=== PATIENT | male | born 1965 | race Caucasian/White ===

== ENCOUNTER 2020-09-25 06:09 | Outpatient (REF) | payer BC, SELFPAY ==
[2020-09-25 07:01] LABS: MANUAL DIFF FLAG NO
[2020-09-25 07:05] LABS: Basophils Percent Auto 0.3 % (0-2); Eosinophils Absolute Auto 0.1 X10*3/uL (0.0-0.4); Eosinophils Percent Auto 1.6 % (0-4); Hematocrit 43.2 % (42-52); Hemoglobin 14.5 g/dl (14.0-18.0); Imm Gran Abs Auto 0.02 X10*3/uL (0.00-0.03); Imm Gran Pct Auto 0.3 % (0.0-0.4); Lymphocytes Absolute Auto 2.4 X10*3/uL (1.2-4.9); Lymphocytes Percent Auto 32.3 % (20-40); Mean Corpuscular HGB Conc 33.6 g/dl (31.0-36.0); Mean Corpuscular Hemoglobin 30.7 pg (27.0-33.0); Mean Corpuscular Volume 91.5 fL (80-98); Mean Platelet Volume 9.4 fL (9.4-12.4); Monocytes Absolute Auto 0.8 X10*3/uL (0.1-1.2); Monocytes Percent Auto 10.8 % (2-11); Neutrophils Absolute Auto 4.1 X10*3/uL (2.0-8.3); Neutrophils Percent Auto 54.7 % (45-73); Platelet Count 230 X10*3/uL (160-400); Red Blood Count 4.72 X10*6/uL (4.60-5.80); Red Cell Distribution Width 12.2 % (11.0-16.0); White Blood Count 7.5 X10*3/uL (4.8-10.8)
[2020-09-25 07:16] LABS: Estimated Average Glucose 120 mg/dL; Hemoglobin A1c % 5.8 %
[2020-09-25 07:36] LABS: Alanine Aminotransferase 56 U/L (0-40); Albumin Level 3.7 g/dL (3.5-5.0); Alkaline Phosphatase 92 U/L (39-117); Anion Gap 12 (12-20); Aspartate Amino Transferase 31 U/L (5-37); Bilirubin Total 0.3 mg/dL (0.0-1.0); Blood Urea Nitrogen 19 mg/dL (9-16); Calcium 9.3 mg/dL (8.4-10.2); Carbon Dioxide 26 mmol/L (22-29); Chloride 105 mmol/L (96-108); Cholesterol 108 mg/dL; Estimated Glomerular Filt Rate > 60; Glucose Random 109 mg/dL (60-115); HDL Cholesterol 36 mg/dL; LDL Cholesterol Calculated 51 mg/dl; Potassium 4.4 mmol/L (3.3-5.1); Sodium 139 mmol/L (135-145); Total Protein 6.4 g/dL (6.5-8.0); Triglycerides 106 mg/dL
== END 2020-09-25 06:10 | disposition home or self-care (01) ==
LOC: HO.LAB 06:09
PROVIDERS: Visit Provider Internal Medicine
DX: Z00.00 Encounter for general adult medical examination without abnormal findings (principal); F33.42 Major depressive disorder, recurrent, in full remission; I10 Essential (primary) hypertension; R73.01 Impaired fasting glucose
CPT/HCPCS: 36415; 80053; 80061; 83036; 85025

== ENCOUNTER → 2021-01-27 14:00 | Outpatient (BNVA) | payer BC, SELFPAY | PROVIDERS: PCP Internal Medicine; Visit Provider Orthopaedic Surgery ==

== ENCOUNTER 2021-03-28 07:00 | Outpatient (REF) | payer BC, SELFPAY ==
[2021-03-28 07:11] LABS: MANUAL DIFF FLAG NO
[2021-03-28 07:35] LABS: Basophils Percent Auto 0.3 % (0-2); Eosinophils Absolute Auto 0.2 X10*3/uL (0.0-0.4); Eosinophils Percent Auto 1.8 % (0-4); Hematocrit 44.7 % (42.0-52.0); Hemoglobin 15.2 g/dl (14.0-18.0); Imm Gran Abs Auto 0.02 X10*3/uL (0.00-0.03); Imm Gran Pct Auto 0.2 % (0.0-0.4); Lymphocytes Percent Auto 30.3 % (20-40); Mean Corpuscular Hemoglobin 31.5 pg (27.0-33.0); Mean Corpuscular Volume 92.7 fL (80.0-98.0); Mean Platelet Volume 9.4 fL (9.4-12.4); Monocytes Percent Auto 10.1 % (2-11); Neutrophils Absolute Auto 5.6 x10*3/uL (2.0-8.3); Neutrophils Percent Auto 57.3 % (45-73); Platelet Count 229 X10*3/uL (160-400); Red Blood Count 4.82 X10*6/uL (4.60-5.80); Red Cell Distribution Width 12.4 % (11.0-16.0); White Blood Count 9.8 X10*3/uL (4.8-10.8)
[2021-03-28 07:57] LABS: Alanine Aminotransferase 59 U/L (0-40); Albumin Level 3.9 g/dL (3.5-5.0); Alkaline Phosphatase 92 U/L (39-117); Anion Gap 14 (12-20); Aspartate Amino Transferase 35 U/L (5-37); Bilirubin Total 0.4 mg/dL (0.0-1.0); Blood Urea Nitrogen 16 mg/dL (9-16); Calcium 9.7 mg/dL (8.4-10.2); Carbon Dioxide 27 mmol/L (22-29); Chloride 102 mmol/L (96-108); Estimated Glomerular Filt Rate > 60; Glucose Random 117 mg/dL (60-115); Potassium 4.7 mmol/L (3.3-5.1); Sodium 138 mmol/L (135-145); Total Protein 7.2 g/dL (6.5-8.0)
== END 2021-03-28 07:01 | disposition home or self-care (01) ==
LOC: HO.LAB 07:00
PROVIDERS: PCP Internal Medicine; Visit Provider Internal Medicine
DX: B35.1 Tinea unguium (principal); I10 Essential (primary) hypertension; K21.9 Gastro-esophageal reflux disease without esophagitis; K62.5 Hemorrhage of anus and rectum
CPT/HCPCS: 36415; 80053; 85025

== ENCOUNTER 2021-09-29 06:16 | Outpatient (REF) | payer BC, SELFPAY ==
[2021-09-29 06:21] LABS: MANUAL DIFF FLAG NO
[2021-09-29 07:26] LABS: Basophils Absolute Auto 0.1 X10*3/uL (0.0-0.2); Basophils Percent Auto 0.7 % (0-2); Eosinophils Absolute Auto 0.2 X10*3/uL (0.0-0.4); Hematocrit 47.8 % (42.0-52.0); Hemoglobin 15.8 g/dl (14.0-18.0); Imm Gran Abs Auto 0.03 X10*3/uL (0.00-0.03); Imm Gran Pct Auto 0.3 % (0.0-0.4); Lymphocytes Percent Auto 33.3 % (20-40); Mean Corpuscular HGB Conc 33.1 g/dl (31.0-36.0); Mean Corpuscular Hemoglobin 30.9 pg (27.0-33.0); Mean Corpuscular Volume 93.5 fL (80.0-98.0); Mean Platelet Volume 9.1 fL (9.4-12.4); Monocytes Percent Auto 10.5 % (2-11); Neutrophils Absolute Auto 4.8 x10*3/uL (2.0-8.3); Neutrophils Percent Auto 53.2 % (45-73); Platelet Count 224 X10*3/uL (160-400); Red Blood Count 5.11 X10*6/uL (4.60-5.80); Red Cell Distribution Width 12.6 % (11.0-16.0); White Blood Count 9.1 X10*3/uL (4.8-10.8)
[2021-09-29 07:52] LABS: Alanine Aminotransferase 49 U/L (0-40); Albumin Level 3.9 g/dL (3.5-5.0); Alkaline Phosphatase 88 U/L (39-117); Anion Gap 13 (12-20); Aspartate Amino Transferase 28 U/L (5-37); Bilirubin Total 0.3 mg/dL (0.0-1.0); Blood Urea Nitrogen 16 mg/dL (9-16); Carbon Dioxide 24 mmol/L (22-29); Chloride 105 mmol/L (96-108); Cholesterol 125 mg/dL; Estimated Glomerular Filt Rate > 60; Glucose Random 106 mg/dL (60-115); HDL Cholesterol 45 mg/dL; LDL Cholesterol Calculated 65 mg/dl; Potassium 4.6 mmol/L (3.3-5.1); Sodium 137 mmol/L (135-145); Total Protein 6.8 g/dL (6.5-8.0); Triglycerides 79 mg/dL
== END 2021-09-29 06:17 | disposition home or self-care (01) ==
LOC: HO.LAB 06:16
PROVIDERS: PCP Internal Medicine; Visit Provider Internal Medicine
DX: Z00.00 Encounter for general adult medical examination without abnormal findings (principal); Z12.5 Encounter for screening for malignant neoplasm of prostate; I10 Essential (primary) hypertension; R73.01 Impaired fasting glucose; R74.01 Elevation of levels of liver transaminase levels
CPT/HCPCS: 36415; 80053; 80061; 84153; 85025

== ENCOUNTER 2022-04-07 08:47 | Outpatient (REF) | payer BC, SELFPAY ==
[2022-04-07 09:03] LABS: MANUAL DIFF FLAG NO
[2022-04-07 09:26] LABS: Basophils Percent Auto 0.5 % (0-2); Eosinophils Absolute Auto 0.2 X10*3/uL (0.0-0.4); Eosinophils Percent Auto 1.9 % (0-4); Hematocrit 44.5 % (42.0-52.0); Hemoglobin 15.2 g/dl (14.0-18.0); Imm Gran Abs Auto 0.01 X10*3/uL (0.00-0.03); Imm Gran Pct Auto 0.1 % (0.0-0.4); Lymphocytes Percent Auto 37.9 % (20-40); Mean Corpuscular HGB Conc 34.2 g/dl (31.0-36.0); Mean Corpuscular Hemoglobin 31.1 pg (27.0-33.0); Mean Platelet Volume 9.2 fL (9.4-12.4); Monocytes Absolute Auto 0.8 X10*3/uL (0.1-1.2); Monocytes Percent Auto 9.9 % (2-11); Neutrophils Percent Auto 49.7 % (45-73); Platelet Count 263 X10*3/uL (160-400); Red Blood Count 4.89 X10*6/uL (4.60-5.80); Red Cell Distribution Width 12.3 % (11.0-16.0)
[2022-04-07 10:05] LABS: Alanine Aminotransferase 44 U/L (0-40); Albumin Level 3.8 g/dL (3.5-5.0); Alkaline Phosphatase 84 U/L (39-117); Anion Gap 14 (12-20); Aspartate Amino Transferase 26 U/L (5-37); Bilirubin Total 0.5 mg/dL (0.0-1.0); Blood Urea Nitrogen 16 mg/dL (9-16); Calcium 9.3 mg/dL (8.4-10.2); Carbon Dioxide 24 mmol/L (22-29); Chloride 106 mmol/L (96-108); Cholesterol 114 mg/dL; Estimated Glomerular Filt Rate > 60; Glucose Random 119 mg/dL (60-115); HDL Cholesterol 39 mg/dL; LDL Cholesterol Calculated 59 mg/dl; Potassium 4.5 mmol/L (3.3-5.1); Sodium 139 mmol/L (135-145); Total Protein 6.5 g/dL (6.5-8.0); Triglycerides 81 mg/dL
[2022-04-07 10:19] LABS: Prostate Specific Antigen Scr 1.08 ng/mL (<0.05-4.0)
== END 2022-04-07 08:48 | disposition home or self-care (01) ==
LOC: HO.LAB 08:47
PROVIDERS: PCP Internal Medicine; Visit Provider Internal Medicine
DX: Z00.00 Encounter for general adult medical examination without abnormal findings (principal); Z12.5 Encounter for screening for malignant neoplasm of prostate; R74.01 Elevation of levels of liver transaminase levels; R73.01 Impaired fasting glucose; I10 Essential (primary) hypertension
CPT/HCPCS: 36415; 80053; 80061; 84153; 85025

== ENCOUNTER 2023-05-14 07:27 | Outpatient (REF) | payer BC, SELFPAY ==
[2023-05-14 07:52] LABS: MANUAL DIFF FLAG NO
[2023-05-14 08:39] LABS: Basophils Percent Auto 0.3 % (0-2); Eosinophils Absolute Auto 0.2 X10*3/uL (0.0-0.4); Eosinophils Percent Auto 2.3 % (0-4); Hematocrit 45.3 % (42.0-52.0); Hemoglobin 15.3 g/dl (14.0-18.0); Imm Gran Abs Auto 0.02 X10*3/uL (0.00-0.03); Imm Gran Pct Auto 0.2 % (0.0-0.4); Lymphocytes Absolute Auto 2.3 X10*3/uL (1.2-4.9); Lymphocytes Percent Auto 26.5 % (20-40); Mean Corpuscular HGB Conc 33.8 g/dl (31.0-36.0); Mean Corpuscular Hemoglobin 31.3 pg (27.0-33.0); Mean Corpuscular Volume 92.6 fL (80.0-98.0); Mean Platelet Volume 9.5 fL (9.4-12.4); Monocytes Absolute Auto 0.9 X10*3/uL (0.1-1.2); Monocytes Percent Auto 10.7 % (2-11); Neutrophils Absolute Auto 5.1 x10*3/uL (2.0-8.3); Platelet Count 223 X10*3/uL (160-400); Red Blood Count 4.89 X10*6/uL (4.60-5.80); Red Cell Distribution Width 12.6 % (11.0-16.0); White Blood Count 8.6 X10*3/uL (4.8-10.8)
[2023-05-14 08:54] LABS: Estimated Average Glucose 117 mg/dL; Hemoglobin A1c % 5.7 % (<6.0)
[2023-05-14 09:12] LABS: Alanine Aminotransferase 47 U/L (0-40); Albumin Level 3.9 g/dL (3.5-5.0); Alkaline Phosphatase 76 U/L (39-117); Anion Gap 12 (12-20); Aspartate Amino Transferase 29 U/L (5-37); Bilirubin Total 0.3 mg/dL (0.0-1.0); Blood Urea Nitrogen 15 mg/dL (9-16); Calcium 9.6 mg/dL (8.4-10.2); Carbon Dioxide 30 mmol/L (22-29); Chloride 105 mmol/L (96-108); Cholesterol 95 mg/dL (<200); Estimated Glomerular Filt Rate > 60; Glucose Random 107 mg/dL (60-115); HDL Cholesterol 43 mg/dL (>40); LDL Cholesterol Calculated 40 mg/dL (<100); Potassium 4.7 mmol/L (3.3-5.1); Sodium 142 mmol/L (135-145); Total Protein 7.2 g/dL (6.5-8.0); Triglycerides 64 mg/dL (<150)
[2023-05-14 09:26] LABS: Ferritin 126 ng/mL (20-250)
== END 2023-05-14 07:28 | disposition home or self-care (01) ==
LOC: HO.LAB 07:27
PROVIDERS: PCP Internal Medicine; Visit Provider Internal Medicine
DX: Z00.00 Encounter for general adult medical examination without abnormal findings (principal); R74.01 Elevation of levels of liver transaminase levels; R73.01 Impaired fasting glucose; I10 Essential (primary) hypertension; G25.81 Restless legs syndrome; F32.5 Major depressive disorder, single episode, in full remission
CPT/HCPCS: 36415; 80053; 80061; 82728; 83036; 85025

== ENCOUNTER 2023-09-07 13:24 | Outpatient (AMB) | payer BC, SELFPAY ==
--- NOTE | 2023-09-07 13:27 | A.OFFVIS_ITS ---
Vital Signs 09/07/23 14:08 Height 5 ft 11 in Weight 210 lb BMI 29.3 Handedness Right Intake Visit Reasons: OV-B/L wrist carpal tunnel-discuss surgery? Intake Note: Leonard is a 58 year old right hand dominant male who presents today for as a new patient for bilateral wrist pain. Patient reports he has been having ongoing pain, numbness and tingling for roughly 12 plus years. He expresses he has numbness during the day with daily activities such as lifting, gripping, grasping with his finger, typing, using the mouse, etc. He has pain that comes and worsens at night so he wears wrist straps for relief, the pain has been getting much worse lately so he is no longer finding relief with the wrist straps. 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 Right is worse than left hand, he would like to have surgery on this wrist first. Patient would like to discuss surgery. Hx of high blood pressure. Allergies No Known Allergies Allergy (Unverified 09/07/23 14:13) HPI HPI OV-B/L wrist carpal tunnel-discuss surgery?: Details: Patient is a 58-year-old male who presents for evaluation of bilateral hand numbness and tingling. The patient reports that, approximately 7 years ago, he had a nerve conduction study done that he believes revealed moderate to severe carpal tunnel syndrome bilaterally, but he has no access to this nerve conduc tion study. Patient reports that numbness and tingling occurs primarily in his fingertips. Symptoms are intermittent, but daily, worse at night, and are worsened with repetitive use of his hand, which is a very significant part of his job. Patient also reports night pain that regularly awakens him from sleep. Patient was previously given night splints to wear previously, and he states that these have become much less effective in recent years. Patient inquires about steps for evaluation and treatment. 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 No thenar or intrinsic wasting. Good APB muscle firing and good finger cross. Vascular: Capillary refill brisk. ROM: Patient can make a fist and extend all their digits. Skin: No lacerations or abrasions noted. General: No ecchymosis. No erythema or evidence of infection. Psych Appearance: grossly normal Mental Status: mental status grossly normal Assessment & Plan Assessment & Plan (1) Numbness and tingling in both hands: Code(s): R20.0 - Anesthesia of skin; R20.2 - Paresthesia of skin Category: Medical Plan 1. Numbness and tingling in hands, bilateral Patient reports numbness and tingling in the median nerve distribution of bilateral hands No numbness and tingling of the small finger reported Symptoms intermittent, but daily, worse at night, exacerbated by repetitive use of hands Pain regularly awakens patient from sleep Previous nerve conduction study done approximately 7 years ago showed moderate to severe bilateral carpal tunnel syndrome, but this nerve conduction study can not be accessed and patient does not have a copy of it. New nerve conduction ordered today to assess for severity of potential median nerve pathology Patient will follow-up in clinic after nerve conduction study is done to review findings and discuss potential treatment options Follow-up sooner as needed with any acute concerns Coding Level of Care Code New Pt Level 3 (08272) Diagnoses Numbness and tingling in both hands R20.0; R20.2
[2023-09-07 14:08] VITALS: BMI 29.3
== END 2023-09-07 14:53 | disposition home or self-care (01) ==
PROVIDERS: PCP Internal Medicine
DX: R20.0 Anesthesia of skin (principal); R20.2 Paresthesia of skin
CPT/HCPCS: 99203

== ENCOUNTER → 2023-09-07 13:24 | Outpatient (BNVA) | payer BC, SELFPAY | PROVIDERS: PCP Internal Medicine; Visit Provider Orthopaedic Surgery ==

== ENCOUNTER 2023-09-30 09:08 | Outpatient (REF) | payer BC, SELFPAY ==
--- NOTE | 2023-09-30 09:11 | EMG_ITS ---
Chief complaint: Bilateral hand numbness Reason for referral: Evaluate for Carpal Tunnel Syndrome Referred by: Cachorro CHATMAN Procedure done: Bilateral upper extremities NCS/EMG Precautions and/or limitations: None The limb temperature was monitored continuously and remained between 32-36 degrees C during the performance of the NCS. Nerve Conduction Studies Anti Sensory Summary Table ?Stim Site NR Onset (ms) Norm Onset (ms) Peak (ms) Norm Peak (ms) O-P Amp (?V) Norm O-P Amp Site1 Site2 Delta-0 (ms) Dist (cm) Milad (m/s) Norm Milad (m/s) Left Median Anti Sensory (2nd Digit) Wrist ? 3.1 3.8 <3.6 18.5 >10 Wrist 2nd Digit 3.1 14.0 45 Right Median Anti Sensory (2nd Digit) Wrist ? 3.4 3.8 <3.6 3.1 >10 Wrist 2nd Digit 3.4 14.0 41 Right Radial Anti Sensory (Thumb) Forearm ? 1.4 2.1 <3.1 20.2 Forearm Thumb 1.4 0.0 Left Ulnar Anti Sensory (5th Digit) Wrist ? 2.3 2.9 <3.7 26.3 >15.0 Wrist 5th Digit 2.3 14.0 61 Right Ulnar Anti Sensory (5th Digit) Wrist ? 1.9 2.6 <3.7 30.3 >15.0 Wrist 5th Digit 1.9 14.0 74 Motor Summary Table ?Stim Site NR Onset (ms) Norm Onset (ms) O-P Amp (mV) Norm O-P Amp iAmp (mV) Amp (1st) (%) Site1 Site2 Delta-0 (ms) Dist (cm) Milad (m/s) Norm Milad (m/s) Left Median Motor (Abd Poll Brev) Wrist ? 4.1 <3.9 3.9 >4.5 4.5 100.0 Elbow Wrist 4.4 23.0 52 >45 Elbow ? 8.5 4.0 4.7 102.6 Right Median Motor (Abd Poll Brev) Wrist ? 4.6 <3.9 5.5 >4.5 6.8 100.0 Elbow Wrist 4.9 23.0 47 >45 Elbow ? 9.5 5.0 6.3 90.9 Left Ulnar Motor (Abd Dig Minimi) Wrist ? 2.7 <3.0 6.0 >5 6.6 100.0 B Elbow Wrist 4.0 22.0 55 >45 B Elbow ? 6.7 5.5 6.1 91.7 A Elbow B Elbow 1.3 10.0 77 >45 A Elbow ? 8.0 5.1 5.8 85.0 Right Ulnar Motor (Abd Dig Minimi) Wrist ? 2.3 <3.0 8.9 >5 10.0 100.0 B Elbow Wrist 4.3 23.0 53 >45 B Elbow ? 6.6 9.0 10.2 101.1 A Elbow B Elbow 1.2 10.0 83 >45 A Elbow ? 7.8 8.7 10.0 97.8 EMG ?Side Muscle Nerve Root Ins Act Fibs Psw Amp Dur Poly Recrt Int Pat Comment Right 1stDorInt Ulnar C8-T1 Nml Nml Nml Nml Nml 0 Nml Complete Right FlexCarRad Median C6-7 Nml Nml Nml Nml Nml 0 Nml Complete Right Biceps Musculocut C5-6 Nml Nml Nml Nml Nml 0 Nml Complete Right Triceps Radial C6-7-8 Nml Nml Nml Nml Nml 0 Nml Complete Right Deltoid Axillary C5-6 Nml Nml Nml Nml Nml 0 Nml Complete Left 1stDorInt Ulnar C8-T1 Nml Nml Nml Nml Nml 0 Nml Complete Left FlexCarRad Median C6-7 Nml Nml Nml Nml Nml 0 Nml Complete Left Biceps Musculocut C5-6 Nml Nml Nml Nml Nml 0 Nml Complete Left Triceps Radial C6-7-8 Nml Nml Nml Nml Nml 0 Nml Complete Left Deltoid Axillary C5-6 Nml Nml Nml Nml Nml 0 Nml Complete FINDINGS: Right median motor nerve showed prolonged distal latency, normal amplitude and normal conduction velocity. Left median motor nerve showed prolonged distal latency, small amplitude and normal conduction velocity. Right median sensory nerve showed prolonged peak latency and small amplitude. Left median sensory nerve showed prolonged peak latency. All other nerves tested were within normal. Concentric needle EMG was performed in selected muscles of the upper extremity. Study did not reveal signs of electric abnormalities as shown in the table above. IMPRESSION: 1. This is an abnormal study. 2. There is electrodiagnostic evidence for bilateral moderate-severe median neuropathy at the wrist, consistent with carpal tunnel syndrome. 3. There is no electrodiagnostic evidence for ulnar neuropathy, brachial plexopathy, or cervical radiculopathy. Thank you for your kind referral. Belkis Dunne MD, CARLOS ALBERTO Board Certified, [place] [employer] and [employer] (ABPMR) Board Certified, [place] [employer] Electro[employer]ostic [employer] (ABEM) CODIN 94349 x 2 MTDD
== END 2023-09-30 09:09 | disposition home or self-care (01) ==
LOC: HO.NEURO 09:08
PROVIDERS: PCP Internal Medicine
DX: R20.0 Anesthesia of skin (principal); R20.2 Paresthesia of skin
CPT/HCPCS: 95886; 95911

== ENCOUNTER → 2023-09-30 09:11 | Outpatient (BNV) | payer BC, SELFPAY | PROVIDERS: PCP Internal Medicine; Visit Provider Physical Medicine & Rehabilitation | DX: G56.03 Carpal tunnel syndrome, bilateral upper limbs (principal) | CPT/HCPCS: 95886; 95911 ==

== ENCOUNTER 2023-10-24 12:49 | Outpatient (AMB) | payer BC, SELFPAY ==
--- NOTE | 2023-10-24 12:55 | MHC.OFFVIS ---
Vital Signs 10/24/23 12:57 Height 5 ft 11 in Weight 210 lb BMI 29.3 Handedness Right Intake Visit Reasons: OV-EMG review, done 09/30/23 Intake Note: Leonard is a 58 year old right hand dominant male who presents to the office today for EMG review, done 09/30/23. Patient express he would like to discuss surgery today. Right hand worse than left so he would like to proceed with right first. Allergies No Known Allergies Allergy (Unverified 10/24/23 12:58) HPI HPI OV-EMG review, done 09/30/23: Details: Patient is a 58-year-old male who presents for EMG review. Patient was previously evaluated for bilateral hand numbness and tingling, intermittent, but daily, worse at night. Patient reports no change in his symptoms since last visit. EMG performed on 09/30/23 revealed bilateral moderate to severe median neuropathy at the carpal tunnel. Patient reports that his symptoms are more bothersome on the right side, since this is his dominant hand, and would like to proceed with surgery on that side 1st. 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 No thenar or intrinsic wasting. Good APB muscle firing and good finger cross. Vascular: Capillary refill brisk. ROM: Patient can make a fist and extend all their digits. Skin: No lacerations or abrasions noted. General: No ecchymosis. No erythema or evidence of infection. Negative Tinel's test at bilateral wrists Results Reviewed Results Reviewed: IMPRESSION: 1. This is an abnormal study. 2. There is electrodiagnostic evidence for bilateral moderate-severe median neuropathy at the wrist, consistent with carpal tunnel syndrome. 3. There is no electrodiagnostic evidence for ulnar neuropathy, brachial plexopathy, or cervical radiculopathy. Assessment & Plan Assessment & Plan (1) Bilateral carpal tunnel syndrome: Code(s): G56.03 - Carpal tunnel syndrome, bilateral upper limbs Category: Medical Plan 1. Right carpal tunnel syndrome, moderate to severe Symptoms intermittent, but daily, worse at night I educated the patient about the condition. I discussed both operative and nonoperative treatment options. The patient would like to proceed with surgery. The risks and benefits of operative treatment were discussed with the patient and the patient wishes to proceed with surgery. These risks include, but are not limited to, risk of damage to blood vessels, nerves, tendons, infection, recurrence, incomplete relief of preoperative symptoms, persistent pain, possible need for further surgery, and the risks associated with regional blocks and/or anesthesia. Plan is to take the patient to the operating room at some point in the next few weeks for the following procedures: 1. Right carpal tunnel release under local anesthesia All of the preoperative paperwork including the consent was discussed today. All of the patient's questions were answered in the clinic today. The patient understands that they will be in contact with our surgical dental assistant to discuss scheduling their procedure. The patient is informed that, if he is healing well from his 1st surgery, we can explore signing up the left side for surgery at his postoperative visit from his right-sided carpal tunnel release Patient denies diabetes, blood thinners, asthma, heart issues, lung issues, kidney issues, or current smoking. Patient will follow-up for preop visit within 1 month of surgery, sooner with any acute concerns. 2. Carpal tunnel syndrome, left, moderate to severe Symptoms intermittent, but daily, worse at night Patient reports that symptoms are more bothersome on the right side, and would like to proceed with surgery on the right side 1st Patient is informed that we can discuss surgery in the left side during the postoperative period from the right side Patient is amenable to this plan Coding Level of Care Code Est Pt Level 4 (01000) Diagnoses Bilateral carpal tunnel syndrome G56.03
[2023-10-24 12:57] VITALS: BMI 29.3
== END 2023-10-24 13:24 | disposition home or self-care (01) ==
PROVIDERS: PCP Internal Medicine
DX: G56.03 Carpal tunnel syndrome, bilateral upper limbs (principal)
CPT/HCPCS: 99214

== ENCOUNTER → 2023-10-24 12:49 | Outpatient (BNVA) | payer BC, SELFPAY | PROVIDERS: PCP Internal Medicine ==

== ENCOUNTER 2024-01-30 08:37 | Day surgery (SDC) | payer OTHER, SELFPAY ==
--- NOTE | 2024-01-30 09:37 | P.OP_ITS ---
Operative Note Operative Note Date of Service: 01/30/24 Narrative: Preop diagnosis: 1. Right Carpal tunnel syndrome Postop diagnosis: same Procedure: 1. Right Carpal tunnel release Surgeon: Jewell Vasquez MD New Accounts Representative: None Anesthesia: local block using 1% lidocaine with epinephrine Findings: Thickened transverse carpal ligament. EBL: Less than 5 mL Specimens: None Complications: None Disposition: Brought to recovery room in stable condition Plan: Follow-up for 10-14 days for wound check and suture removal Indications: The patient is 58 years old, with right carpal tunnel syndrome that has been unresponsive to nonoperative management. The risks and benefits of operative treatment including but not limited to risk of damage to blood vessels, nerves, tendons, infection, persistent pain, persistent symptoms, or possible need for additional surgery were discussed with the patient and the patient wishes to proceed with surgery. Procedure: Once consent was obtained a local block was performed using a combination of 1% lidocaine with epinephrine. The patient was then brought back to the operating suite and placed on the operative table in supine position. The right upper extremity was prepped and draped in a standard surgical fashion. Once assured that we had a good block, a 2.0 cm longitudinal incision was made centered over the carpal tunnel. The incision was made through the skin to the subcutaneous tissues using a #15 blade. Dissection was made down to the level of the transverse carpal ligament with care being taken to protect the palmar cutaneous nerve. Once the transverse carpal ligament was clearly visualized, a longitudinal incision was made in the transverse carpal ligament 1st using a #15 blade, then using tenotomy scissors under direct visualization. Care was taken to look for and protect the motor branch of the median nerve when seen in this area. Once satisfied with our carpal tunnel release the wound was copiously irrigated with normal saline and hemostasis was obtained with a brief period of local pressure. The skin edges were reapproximated with some 5.0 nylon suture material and a sterile dressing was applied. The patient appears to have tolerated the procedure well and with no complic ations. All digits were well vascularized at the conclusion of the case.
[2024-01-30 09:49] VITALS: BMI 29.3
--- NOTE | 2024-01-30 11:27 | MHC.SHP ---
Pre-Procedural Eval Section A - 24 Hr Update-Section A only Date of Service: 01/30/24 The patient is an INPATIENT: No Changes since office visit: No Cold of Flu in the past 2 weeks, No New Medical Problems, No Changes in Medication and No Patient answered all questions The patient has been examined within 24 hours of the surgical procedure. The History & Physical has been completed within 30 days and I have reviewed it.: Yes Section B - Complete if H&P > 30 days Chief Complaint: Carpal tunnel syndrome, right upper limb Allergies: Allergies Allergy/AdvReac Type Severity Reaction Status Date / Time No Known Allergies Allergy Unverified 10/24/23 12:58 Plan Diagnosis/Plan: Unchanged I have reviewed the history and physical and performed a pertinent physical examination on my patient. No changes have occurred unless specified. Time Spent With Patient Time: Total time managing care of this patient today ____ minutes.
== END 2024-01-30 13:14 | disposition home or self-care (01) ==
PROVIDERS: PCP Internal Medicine; Visit Provider Orthopaedic Surgery
PROC: (CPT 64721; principal; 2024-01-30 11:20)
DX: G56.01 Carpal tunnel syndrome, right upper limb (principal); R20.0 Anesthesia of skin; R20.2 Paresthesia of skin
CPT/HCPCS: 64721; J0171; J2003

== ENCOUNTER → 2024-01-30 08:37 | Outpatient (BNV) | payer OTHER, SELFPAY | PROVIDERS: PCP Internal Medicine; Visit Provider Orthopaedic Surgery | DX: G56.01 Carpal tunnel syndrome, right upper limb (principal) | CPT/HCPCS: 64721 ==

== ENCOUNTER 2024-02-15 08:25 | Outpatient (AMB) | payer OTHER, SELFPAY ==
--- NOTE | 2024-02-15 08:27 | A.OFFVIS_ITS ---
Intake Visit Reasons: PO- Rt CTR 01/30/24 Intake Note: Leonard is a 58 year old male who presents to the office today for a PO Rt CTR 01/30/24. Pt states he is feeling well and denies any numbness or tingling. Allergies No Known Allergies Allergy (Unverified 02/15/24 08:28) HPI HPI PO- Rt CTR 01/30/24: Details: Patient is a 58-year-old male who presents for postoperative evaluation status post right carpal tunnel release, DOS 01/30/2024. Today, the patient reports that he is feeling very well, and then he is experiencing no further numbness or tingling in his right hand. Patient reports no concerns with the incision site, denies any redness, drainage, or purulence from the area. Patient states he would like to get signed up for left-sided surgery today. No other acute complaints or concerns at this time. 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 Good APB muscle firing and good finger cross. Vascular: Capillary refill brisk. ROM: Patient can make a fist and extend all their digits. Skin: Well approximated and well healing incision site noted on the volar aspect of the patient's right wrist General: No ecchymosis. No erythema or evidence of infection. Results Reviewed Results Reviewed: IMPRESSION: 1. This is an abnormal study. 2. There is electrodiagnostic evidence for bilateral moderate-severe median neuropathy at the wrist, consistent with carpal tunnel syndrome. 3. There is no electrodiagnostic evidence for ulnar neuropathy, brachial plexopathy, or cervical radiculopathy. Assessment & Plan Assessment & Plan (1) Bilateral carpal tunnel syndrome: Code(s): G56.03 - Carpal tunnel syndrome, bilateral upper limbs Category: Medical Plan 1. Carpal tunnel syndrome, right, status post carpal tunnel release DOS 01/30/2024 Patient appears to be recovering well postoperatively Patient is educated about the typical recovery course At this time, patient is informed that he does not require any further acute follow-up with us, as he is recovering very well from his surgery and exhibiting no worrisome signs or symptoms. Patient was amenable to this plan 2. Carpal tunnel syndrome, left I educated the patient about the condition. I discussed both operative and nonoperative treatment options. The patient would like to proceed with surgery. The risks and benefits of operative treatment were discussed with the patient and the patient wishes to proceed with surgery. These risks include, but are not limited to, risk of damage to blood vessels, nerves, tendons, infection, recurrence, incomplete relief of preoperative symptoms, persistent pain, possible need for further surgery, and the risks associated with regional blocks and/or anesthesia. Plan is to take the patient to the operating room at some point in the next few weeks for the following procedures: 1. Left carpal tunnel release under local anesthesia All of the preoperative paperwork including the consent was discussed today. All of the patient's questions were answered in the clinic today. The patient understands that they will be in contact with our manager surgical to discuss scheduling their procedure. Patient denies diabetes, blood thinners, asthma, heart issues, lung issues, kidney issues, or current smoking. Coding Level of Care Code Est Pt Level 4 (17458) Diagnoses Bilateral carpal tunnel syndrome G56.03
== END 2024-02-15 08:53 | disposition home or self-care (01) ==
PROVIDERS: PCP Internal Medicine
DX: G56.03 Carpal tunnel syndrome, bilateral upper limbs (principal)
CPT/HCPCS: 99214

== ENCOUNTER → 2024-02-15 08:25 | Outpatient (BNVA) | payer OTHER, SELFPAY | PROVIDERS: PCP Internal Medicine | DX: Z47.89 Encounter for other orthopedic aftercare (principal); Z98.890 Other specified postprocedural states | CPT/HCPCS: 99212 ==

== ENCOUNTER 2024-06-05 06:10 | Outpatient (REF) | payer BC, SELFPAY ==
[2024-06-05 07:48] LABS: Alanine Aminotransferase 38 U/L (0-40); Albumin Level 3.7 g/dL (3.5-5.0); Alkaline Phosphatase 72 U/L (39-117); Anion Gap 11 (12-20); Aspartate Amino Transferase 24 U/L (5-37); Bilirubin Total 0.3 mg/dL (0.0-1.0); Blood Urea Nitrogen 20 mg/dL (9-16); Calcium 9.4 mg/dL (8.4-10.2); Carbon Dioxide 23 mmol/L (22-29); Chloride 108 mmol/L (96-108); Estimated Glomerular Filt Rate > 60; Glucose Random 123 mg/dL (60-115); Potassium 4.4 mmol/L (3.3-5.1); Sodium 138 mmol/L (135-145); Total Protein 6.8 g/dL (6.5-8.0)
[2024-06-05 08:10] LABS: HBS Num1 0.03 mIU/mL (0-7.99); HBc Num1 0.05 S/CO (0.00-0.79); HBsAGNum1 0.26 S/CO (0.00-0.99); Hepatitis B Core Antibody Nonreactive (Nonreactive); Hepatitis B Surface Antigen Negative (Negative); ~Hepatitis B Surface Antibody NONREACTIVE (Nonreactive)
[2024-06-05 08:13] LABS: Prostate Specific Antigen Scr 1.06 ng/mL (<0.05-4.0)
[2024-06-06 18:07] LABS: HCV RNA PCR Qn <1.18 NOT DETECTED Log IU/mL (NOT DETECTED); HCV RNA PCR Qn <15 NOT DETECTED IU/mL (NOT DETECTED)
== END 2024-06-05 06:11 | disposition home or self-care (01) ==
LOC: HO.LAB 06:10
PROVIDERS: PCP Internal Medicine; Visit Provider Internal Medicine
DX: Z00.00 Encounter for general adult medical examination without abnormal findings (principal); R74.01 Elevation of levels of liver transaminase levels; N40.0 Benign prostatic hyperplasia without lower urinary tract symptoms; I10 Essential (primary) hypertension; G25.81 Restless legs syndrome; F43.12 Post-traumatic stress disorder, chronic; E78.00 Pure hypercholesterolemia, unspecified; Z12.5 Encounter for screening for malignant neoplasm of prostate
CPT/HCPCS: 36415; 80053; 84153; 86704; 86706; 87340; 87522

== ENCOUNTER 2025-01-09 14:18 | Emergency (ER) | payer OTHER, SELFPAY ==
--- NOTE | ~2025-01-09 | XR_ITS ---
EXAMINATION: XR CHEST CLINICAL INFORMATION: sob COMPARISON: Previous chest x-ray June 2019 TECHNIQUE: 2 views of the chest were obtained. FINDINGS: The lungs are clear. No consolidation or pulmonary edema. No pleural effusion or pneumothorax. Cardiac and mediastinal contours are normal. Degenerative changes of the spine and right shoulder. XR/XR chest 2V IMPRESSION: No evidence for acute disease in the chest. Electronically signed by: Suzanne Pittman MD 01/09/2025 04:12 PM EDT
--- NOTE | ~2025-01-09 | CT_ITS ---
CLINICAL HISTORY: chest pain, dyspnea CT angiography chest with contrast. 3D Postprocessing. Comparison: Chest radiograph earlier on the same day. Findings: No suspicious thyroid nodules. No lymphadenopathy. Mediastinum and heart: No cardiomegaly. Lungs: No consolidation, pleural effusion, or pneumothorax. 7 mm nodule in the lingula (series 5, image 55). 11 mm cavitary nodule in the right upper lobe (series 5, image 39). 7 mm nodule more centrally in the right upper lobe (series 5, image 37). 9 mm nodule in the right lower lobe (series 5, image 67). Peripheral regions of air trapping and scarring in the right lower lobe (series 5, image 78. Focal bronchiectasis in the right middle lobe (series 5, image 84). Pulmonary arteries: No pulmonary emboli to the level of the lobar arteries. Bones and soft tissues: Multilevel degenerative changes. No acute fracture. Small hiatal hernia. Cholecystectomy. 1.0 cm left adrenal nodule. Impression: No acute pulmonary emboli to the level of the lobar arteries. Multiple lung nodules. The largest measures 11 mm and demonstrates cavitary characteristics. Recommend CT chest in 3 months and consider HRCT given possible fibrotic changes in the right lower lobe. 1.0 cm left adrenal nodule. Recommend a nonurgent CT/MR adrenal protocol exam. This document has been electronically signed by: Martina Warren MD on 01/09/2025 22:01:59
--- NOTE | 2025-01-09 14:20 | ECG_ITS ---
Test Reason : cp Blood Pressure : */* mmHG Vent. Rate : 101 BPM Atrial Rate : 101 BPM P-R Int : 170 ms QRS Dur : 82 ms QT Int : 322 ms P-R-T Axes : 60 47 43 degrees QTcB Int : 417 ms Sinus tachycardia Otherwise normal ECG When compared with ECG of 30-Jan-2012 14:46, No significant changes seen Referred By: Generic ED Physician Electronically Signed By: ROC CASTELLON
[2025-01-09 14:27] VITALS: BP 129/78; PULSE 100; RESP 18; TEMP 36.4; O2SAT 95; BMI 27.8
--- NOTE | 2025-01-09 14:30 | ED_ITS ---
HPI - General Adult General Chief complaint: Dyspnea Stated complaint: heart attack last night? Time Seen by Provider: 01/09/25 17:02 Source: patient, RN notes reviewed and old records reviewed Mode of arrival: ambulatory Limitations: no limitations History of Present Illness ED Provider: Clive STACY narrative: 59-year-old male with past medical history significant for hypertension presents for evaluation of chest pain. He reports that he woke up late last night with a sudden onset of midsternal chest pain. He reports associated shortness of breath, sweating The symptoms lasted about 15 minutes before resolving completely He reports that he did not want to go to the hospital late last night but was persuaded to be evaluated today. Currently he feels well without any chest pain, shortness of breath palpitations. He denies any family history of blood clots he reports his mother has heart failure Denies any recent travel He reports that he did have a troponin of beats of for dinner last night in his concerned that this in his may be related to gas but he has never felt symptoms this severe in the past Related Data Home Medications ?Medication ?Instructions ?Recorded ?Confirmed fluoxetine 10 mg capsule 10 mg PO DAILY 09/07/23 lisinopril 2.5 mg tablet 2.5 mg PO DAILY 09/07/23 quetiapine 25 mg tablet 25 mg PO BEDTIME 09/07/23 ropinirole 0.25 mg tablet 0.25 mg PO BEDTIME 09/07/23 Allergies Allergy/AdvReac Type Severity Reaction Status Date / Time No Known Allergies Allergy Verified 01/09/25 14:28 Review of Systems 2 Constitutional: Constitutional: Denies body ache(s), Denies chills, Denies fever(s) and Denies headache(s) Eyes: Eyes: Denies blurry vision and Denies irritation ENT: Denies dizziness and Denies headache(s) Cardiovascular: Cardiovascular: Reports chest pain, Reports dyspnea and Denies dyspnea on exertion Respiratory: Respiratory: Denies cough, Reports dyspnea and Denies dyspnea on exertion Gastrointestinal: Gastrointestinal: Denies abdominal pain, Denies nausea and Denies vomiting Musculoskeletal: Musculoskeletal: Denies back pain Integumentary/Breasts: Skin/Breast: Denies rash Neurologic: Denies dizziness and Denies headache(s) [facility] Social History Social History Alcohol intake: current Patient Tobacco Use Status: Never used Tobacco Advance Directives: No Advance Directives Information Provided: No service: No Current occupational status: employed 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 Physical Exam ED Vital Signs: Vital Signs - 24 hr 01/09/25 14:27 01/09/25 17:48 01/09/25 20:15 Temperature 97.5 F 98.2 F 98.2 F Pulse Rate 100 100 97 Respiratory Rate 18 16 16 Blood Pressure 129/78 126/92 H 125/87 Pulse Oximetry 95 96 97 Oxygen Delivery Method Room Air Room Air Room Air BMI result Body Mass Index 27.8 Const General: healthy appearing, comfortable, no acute distress, alert and awake Nutritional Appearance: well nourished Orientation/consciousness: patient oriented x3 HENMT Head: Yes normocephalic and Yes atraumatic Eyes Eyelids: Yes eyelids normal Conjunctivae: conjunctivae normal Sclerae: sclerae normal Corneas: corneas normal Pupils: Equal, round and reactive pupils present EOM: EOMs intact bilaterally Neck Neck: Yes full ROM Resp Effort & Inspection: normal respiratory effort, able to speak in complete sentences, no audible wheezes and not labored Auscultation: clear to auscultation bilaterally Cardio Rate: regular rate Rhythm: regular rhythm GI Inspection: No distended Palpation (GI): Soft to palpation, not firm, nontender, no guarding and not rigid Skin General skin exam: no rashes or lesions noted and elasticity normal Neuro General: patient oriented x3 Cranial nerves: Yes Equal, round and reactive pupils present and Yes Bilaterally intact EOM present Cognition (Neuro): normal cognition Extrem Other: Moving all extremities well without any obvious deformities Course Course Course Narrative: Rapid medical screening exam was performed. Patient stable at time of evaluation. 59 yo male presenting for chest pain that started last night. It was self limited. Left sided sharp chest pain. Complaining of some shortness of breath. Non smoker, History of HTN, No high cholesterol. No DM. No active Chest pain. Just shortness of breath. Lulu Robert, DO 01/09/25 1431 Medications Administered Discontinued Medications Generic Name Dose Route Start Last Admin Trade Name Freq PRN Reason Stop Dose Admin Iohexol 100 ml 01/09/25 20:35 01/09/25 20:36 Iohexol 350 Mg/Ml 100 Ml Infus..Btl IV 01/09/25 20:36 65 ml ONCE ONE Administration Medical Decision Making Medical Decision Making [facility] Narrative: 59-year-old male with past medical history significant for hypertension presents for evaluation of chest pain. He is currently asymptomatic reports 15 minutes of chest pain that woke him up from sleep last night. He had associated shortness of breath. His EKG is nonischemic, in his troponin is negative. He rules out for ACS as the symptoms for over 12 hours ago. His chest x-ray is clear without evidence of infiltrates, pneumothorax or pleural effusion. However his heart rate was one hundred any can not he ruled out for PE through per criteria. I added a D-dimer. He has been risk factors. If negative I think he can safely be discharged to follow up with his primary doctor Differential Diagnosis Differential Diagnoses: The differential diagnosis associated with the presentation includes Chest pain Obstipation Peptic ulcer disease ACS PE Costochondritis Muscle strain Anxiety Admission/Observation Consideration of admission/observation: Escalation of care including admission/observation considered The patient was evaluated for ACS and ultimately ruled out and thus did not require admission Lab Data [facility] Lab Attestation statement: I reviewed the patient's lab results. No leukocytosis or anemia. Normal platelet count. No significant electrolyte abnormalities warranting emergent beer on initial troponin negative 01/09/25 15:18 01/09/25 15:18 Labs: Lab Results 01/09/25 01/09/25 Range/Units 15:18 18:04 WBC 10.8 (4.8-10.8) X10*3/uL RBC 4.74 (4.60-5.80) X10*6/uL Hgb 14.9 (14.0-18.0) g/dl Hct 43.3 (42.0-52.0) % MCV 91.4 (80.0-98.0) fL MCH 31.4 (27.0-33.0) pg MCHC 34.4 (31.0-36.0) g/dl RDW 12.7 (11.0-16.0) % Plt Count 192 (160-400) X10*3/uL MPV 9.0 L (9.4-12.4) fL Immature Gran % (Auto) 0.3 (0.0-0.4) % Neut % (Auto) 65.7 (45-73) % Lymph % (Auto) 22.6 (20-40) % [place] % (Auto) 9.9 (2-11) % Eos % (Auto) 1.1 (0-4) % Baso % (Auto) 0.4 (0-2) % Lymph # (Auto) 2.4 (1.2-4.9) X10*3/uL [place] # (Auto) 1.1 (0.1-1.2) X10*3/uL Eos # (Auto) 0.1 (0.0-0.4) X10*3/uL Baso # (Auto) 0.0 (0.0-0.2) X10*3/uL Abs Immat Gran (auto) 0.03 (0.00-0.03) X10*3/uL Absolute Neuts (auto) 7.1 (2.0-8.3) x10*3/uL Absolute Nucleated RBC 0.000 (0.0-0.012) X10*3/uL Nucleated RBC % (auto) 0.0 (0.0-0.2) /100WBC D-Dimer High Sensitivty 606 NG/ML Sodium 137 (135-145) mmol/L Potassium 4.6 (3.3-5.1) mmol/L Chloride 103 (96-108) mmol/L Carbon Dioxide 28 (22-29) mmol/L Anion Gap 11 L (12-20) BUN 17 H (9-16) mg/dL Creatinine 0.80 (0.5-1.4) mg/dL Estim Creat Clear Calc 115.8 Estimated GFR > 60 Random Glucose 93 (60-115) mg/dL Calcium 9.4 (8.4-10.2) mg/dL Total Bilirubin 0.3 (0.0-1.0) mg/dL AST 32 (5-37) U/L ALT 50 H (0-40) U/L Alkaline Phosphatase 80 (39-117) U/L Troponin I High Sens < 2.7 (<3.5-35.0) ng/L NT-Pro-B Natriuret Pep 35.2 (<300) pg/mL Total Protein 7.4 (6.5-8.0) g/dL Albumin 4.3 (3.5-5.0) g/dL Independent Interpretation I performed an independent interpretation of an: EKG (Sinus tachycardia rate of [address] segment elevation [place]. Nondiagnostic EKG) and Plain X- Ray Interpretation: No infiltrates, effusions or pneumothorax Radiology Impression Discussion of test interpretation with radiology: I have reviewed the radiologist's reading. Radiologist Impression: FINDINGS: The lungs are clear. No consolidation or pulmonary edema. No pleural effusion or pneumothorax. Cardiac and mediastinal contours are normal. Degenerative changes of the spine and right shoulder. XR/XR chest 2V IMPRESSION: No evidence for acute disease in the chest. Electronically signed by: Suzanne Pittman MD 01/09/2025 04:12 PM EDT RP Findings: No suspicious thyroid nodules. No lymphadenopathy. Mediastinum and heart: No cardiomegaly. Lungs: No consolidation, pleural effusion, or pneumothorax. 7 mm nodule in the lingula (series 5, image 55). 11 mm cavitary nodule in the right upper lobe (series 5, image 39). 7 mm nodule more centrally in the right upper lobe (series 5, image 37). 9 mm nodule in the right lower lobe (series 5, image 67). Peripheral regions of air trapping and scarring in the right lower lobe (series 5, image 78. Focal bronchiectasis in the right middle lobe (series 5, image 84). Pulmonary arteries: No pulmonary emboli to the level of the lobar arteries. Bones and soft tissues: Multilevel degenerative changes. No acute fracture. Small hiatal hernia. Cholecystectomy. 1.0 cm left adrenal nodule. Impression: No acute pulmonary emboli to the level of the lobar arteries. Multiple lung nodules. The largest measures 11 mm and demonstrates cavitary characteristics. Recommend CT chest in 3 months and consider HRCT given possible fibrotic changes in the right lower lobe. 1.0 cm left adrenal nodule. Recommend a nonurgent CT/MR adrenal protocol exam. This document has been electronically signed by: Martina Warren MD on 01/09/2025 22:01:59 Tests considered The following testing was considered but not selected: Consider CT angiography of the chest Chronic Conditions Patient?s care impacted by: Hypertension Discharge Plan Discharge Clinical Impression: Chest pain Patient Disposition: Home, Self-Care Instructions: Chest Pain (ED) Additional Instructions: Your workup in the ER today was reassuring. This includes your EKG, labs. The chest x-ray did not show any concerning abnormalities pain The CT scan of the chest did not show any blood clots but did show some pulmonary nodules that to require follow up. You should have a follow up CT scan of the rate of 6 months. Talk to your primary doctor about getting in his scheduled Prescriptions: No Action lisinopril 2.5 mg tablet 2.5 mg PO DAILY ropinirole 0.25 mg tablet 0.25 mg PO BEDTIME Rx Instructions: administer 1-3 hours before bedtime fluoxetine 10 mg capsule 10 mg PO DAILY quetiapine 25 mg tablet 25 mg PO BEDTIME Print Language: Hebrew
[2025-01-09 15:22] LABS: MANUAL DIFF FLAG NO
[2025-01-09 15:23] LABS: Hematocrit 43.3 % (42.0-52.0); Hemoglobin 14.9 g/dl (14.0-18.0); Imm Gran Abs Auto 0.03 X10*3/uL (0.00-0.03); Imm Gran Pct Auto 0.3 % (0.0-0.4); Lymphocytes Absolute Auto 2.4 X10*3/uL (1.2-4.9); Mean Corpuscular HGB Conc 34.4 g/dl (31.0-36.0); Mean Corpuscular Hemoglobin 31.4 pg (27.0-33.0); Mean Corpuscular Volume 91.4 fL (80.0-98.0); NRBC Abs Auto 0.000 X10*3/uL (0.0-0.012); NRBC Pct Auto 0.0 /100WBC (0.0-0.2); Platelet Count 192 X10*3/uL (160-400); Red Blood Count 4.74 X10*6/uL (4.60-5.80); White Blood Count 10.8 X10*3/uL (4.8-10.8)
[2025-01-09 15:37] LABS: Alanine Aminotransferase 50 U/L (0-40); Albumin Level 4.3 g/dL (3.5-5.0); Alkaline Phosphatase 80 U/L (39-117); Anion Gap 11 (12-20); Aspartate Amino Transferase 32 U/L (5-37); Blood Urea Nitrogen 17 mg/dL (9-16); Calcium 9.4 mg/dL (8.4-10.2); Carbon Dioxide 28 mmol/L (22-29); Chloride 103 mmol/L (96-108); Creatinine Clr Calc Pharmacy 115.8; Estimated Glomerular Filt Rate > 60; Potassium 4.6 mmol/L (3.3-5.1); Sodium 137 mmol/L (135-145); Total Protein 7.4 g/dL (6.5-8.0)
[2025-01-09 15:44] LABS: NT Pro B Type Natriuretic Pept 35.2 pg/mL (<300); Troponin-I High Sensitivity < 2.7 ng/L (<3.5-35.0)
[2025-01-09 17:48] VITALS: BP 126/92; PULSE 100; RESP 16; TEMP 36.8; O2SAT 96
[2025-01-09 18:32] LABS: D Dimer High Sensitivity 606 NG/ML
[2025-01-09 20:15] VITALS: BP 125/87; PULSE 97; RESP 16; TEMP 36.8; O2SAT 97
[2025-01-09] MEDS: iohexoL 350 MG/ML 100 ML INFUS..BTL IV (20:36)
[2025-01-09 22:24] VITALS: BP 125/87; PULSE 97; RESP 16; TEMP 36.8; O2SAT 97
== END 2025-01-09 22:24 | disposition home or self-care (01) ==
PROVIDERS: Physician Assistant; Emergency Provider Student in an Organized Health Care Education/Training Program; PCP Internal Medicine
DX: R07.9 Chest pain, unspecified (principal); R06.02 Shortness of breath; I10 Essential (primary) hypertension; R06.00 Dyspnea, unspecified; R91.8 Other nonspecific abnormal finding of lung field
CPT/HCPCS: 36415; 71046; 71275; 80053; 83880; 84484; 85025; 85379; 93005; 99284; Q9967

== ENCOUNTER → 2025-01-09 14:20 | Outpatient (BNV) | payer OTHER, SELFPAY | PROVIDERS: Emergency Provider Student in an Organized Health Care Education/Training Program; PCP Internal Medicine; Visit Provider Internal Medicine | DX: R00.0 Tachycardia, unspecified (principal) | CPT/HCPCS: 93010 ==

== ENCOUNTER 2025-01-25 15:41 | Emergency (ER) | payer OTHER, SELFPAY ==
[2025-01-25 16:36] VITALS: BP 114/73; PULSE 93; RESP 16; TEMP 36.6; O2SAT 98; BMI 28.4
--- NOTE | 2025-01-25 16:36 | ED_ITS ---
HPI - General Adult General Chief complaint: General Medical Stated complaint: left side face swelling Time Seen by Provider: 01/25/25 18:27 Source: patient, RN notes reviewed and old records reviewed Mode of arrival: ambulatory Limitations: no limitations History of Present Illness ED Provider: Clive STACY narrative: 59-year-old male presents for evaluation of left-sided neck swelling. He reports he was eating a ham and cheese sandwich around 3:00 p.m. today He noticed swelling to the left side of his face and neck. He has no pain, denies any fevers. His symptoms have started to improve but he still has swelling. He reports he is up-to-date on all his vaccines including his mumps vaccine Many years ago he had similar issue and was diagnosed with ? a salivary stone. He has no other complaints or concerns at this time Related Data Home Medications ?Medication ?Instructions ?Recorded ?Confirmed fluoxetine 10 mg capsule 10 mg PO DAILY 09/07/23 lisinopril 2.5 mg tablet 2.5 mg PO DAILY 09/07/23 quetiapine 25 mg tablet 25 mg PO BEDTIME 09/07/23 ropinirole 0.25 mg tablet 0.25 mg PO BEDTIME 09/07/23 Allergies Allergy/AdvReac Type Severity Reaction Status Date / Time No Known Allergies Allergy Verified 01/25/25 16:40 Review of Systems 2 Constitutional: Constitutional: Denies body ache(s), Denies chills, Denies fever(s) and Denies headache(s) Eyes: Eyes: Denies blurry vision ENT: Denies vertigo, Denies dizziness, Denies headache(s), Denies sore throat, Denies throat swelling, Denies tongue swelling and Reports other Comments: Reports left neck swelling Cardiovascular: Cardiovascular: Denies chest pain, Denies dyspnea and Denies dyspnea on exertion Respiratory: Respiratory: Denies cough, Denies dyspnea and Denies dyspnea on exertion Gastrointestinal: Gastrointestinal: Denies abdominal pain, Denies nausea and Denies vomiting Musculoskeletal: Musculoskeletal: Denies back pain Integumentary/Breasts: Skin/Breast: Denies rash Neurologic: Denies vertigo, Denies dizziness and Denies headache(s) Allergic/Immunologic: Allergic/Immunologic: Denies throat swelling and Denies tongue swelling PMF Social History Social History Alcohol intake: current Patient Tobacco Use Status: Never used Tobacco Advance Directives: No Advance Directives Information Provided: Yes service: No 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 occupational 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: 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 [place]'s duct and Stensen's ducts unremarkable bilaterally Head: Yes normocephalic and Yes atraumatic Throat: Yes posterior oropharynx normal Eyes Eyelids: Yes eyelids normal Conjunctivae: conjunctivae normal Sclerae: sclerae normal Corneas: corneas normal Pupils: Equal, round and reactive pupils present EOM: EOMs intact bilaterally Neck Other: There is positive left anterior neck edema at the left. There was no tenderness, no surrounding erythema, no fluctuance. Neck: Yes full ROM Resp Effort & Inspection: normal respiratory effort, able to speak in complete sentences and not labored Skin General skin exam: elasticity normal Neuro General: patient oriented x3 Cranial nerves: Yes CN's II-XII intact bilaterally, Yes Equal, round and reactive pupils present and Yes Bilaterally intact EOM present Cognition (Neuro): normal cognition Extrem Other: Moving all extremities well without any obvious deformities Course Course Course Narrative: This is a rapid medical exam performed by Casandra Elder NP: Additional HPI, ROS, PE not included below will be deferred to primary provider. Patient is a 59y/o M presenting to the ED with c/o sudden onset L sided facial swelling while eating a ham and cheese sandwich around 2:30-3. Former smoker, hx of sialolith in the past. Plan: labs Medical Decision Making Medical Decision Making MDM Narrative: 59-year-old male presents for evaluation of left neck swelling. This is nonpainful, nontender. The patient is afebrile, he has no infectious symptoms. It happened rather acutely while he was high clinical suspicion the patient has a sialolith. I did discuss possible imaging with the patient including CT scan of the neck to rule or abscess but given how rapidly this happened and the fact that is not painful I feel this is less likely. Discussed risks and benefits the patient and he is comfortable deferring this exam. I gave him return precautions, specifically if you develops a fever, severe pain in the area or difficulty breathing/swallowing he should return to the ER immediately. He was provided with instructions including sour candies Differential Diagnosis Differential Diagnoses: The differential diagnosis associated with the presentation includes Sialoadenitis [place] with Neck swelling Soft tissue mass Mumps Lab Data MDM Lab Attestation statement: I reviewed the patient's lab results. Mild leukocytosis to 11.4, unclear etiology. No anemia. Normal platelet count. No electrolyte abnormalities warranting mentioned. 01/25/25 16:53 01/25/25 16:53 Labs: Lab Results 01/25/25 Range/Units 16:53 WBC 11.4 H (4.8-10.8) X10*3/uL RBC 4.83 (4.60-5.80) X10*6/uL Hgb 15.3 (14.0-18.0) g/dl Hct 43.9 (42.0-52.0) % MCV 90.9 (80.0-98.0) fL MCH 31.7 (27.0-33.0) pg MCHC 34.9 (31.0-36.0) g/dl RDW 12.6 (11.0-16.0) % Plt Count 220 (160-400) X10*3/uL MPV 8.7 L (9.4-12.4) fL Immature Gran % (Auto) 0.4 (0.0-0.4) % Neut % (Auto) 72.4 (45-73) % Lymph % (Auto) 17.6 L (20-40) % [place] % (Auto) 8.0 (2-11) % Eos % (Auto) 1.3 (0-4) % Baso % (Auto) 0.3 (0-2) % Lymph # (Auto) 2.0 (1.2-4.9) X10*3/uL [place] # (Auto) 0.9 (0.1-1.2) X10*3/uL Eos # (Auto) 0.2 (0.0-0.4) X10*3/uL Baso # (Auto) 0.0 (0.0-0.2) X10*3/uL Abs Immat Gran (auto) 0.04 H (0.00-0.03) X10*3/uL Absolute Neuts (auto) 8.3 (2.0-8.3) x10*3/uL Absolute Nucleated RBC 0.000 (0.0-0.012) X10*3/uL Nucleated RBC % (auto) 0.0 (0.0-0.2) /100WBC Sodium 140 (135-145) mmol/L Potassium 4.2 (3.3-5.1) mmol/L Chloride 105 (96-108) mmol/L Carbon Dioxide 27 (22-29) mmol/L Anion Gap 12 (12-20) BUN 19 H (9-16) mg/dL Creatinine 0.87 (0.5-1.4) mg/dL Estim Creat Clear Calc 107.5 Estimated GFR > 60 Random Glucose 103 (60-115) mg/dL Calcium 9.6 (8.4-10.2) mg/dL Total Bilirubin 0.2 (0.0-1.0) mg/dL AST 31 (5-37) U/L ALT 52 H (0-40) U/L Alkaline Phosphatase 83 (39-117) U/L Total Protein 7.3 (6.5-8.0) g/dL Albumin 4.2 (3.5-5.0) g/dL Tests considered The following testing was considered but not selected: Consider CT scan of the neck but ultimately deferred Discharge Plan Discharge Clinical Impression: Neck swelling Patient Disposition: Home, Self-Care Instructions: Parotid Duct Obstruction (ED) Additional Instructions: Your symptoms are most consistent with a salivary stone causing in the swelling to the left side of your neck and face. The treatment for this is to suck on sour candies You should return to the emergency department if you develop severe pain in the area, develop fevers, or difficulty breathing or swallowing. Follow up with your primary doctor, return for new or worsening symptom Prescriptions: No Action lisinopril 2.5 mg tablet 2.5 mg PO DAILY ropinirole 0.25 mg tablet 0.25 mg PO BEDTIME Rx Instructions: administer 1-3 hours before bedtime fluoxetine 10 mg capsule 10 mg PO DAILY quetiapine 25 mg tablet 25 mg PO BEDTIME Interventions: ED Discharge Assessment Last Done: 01/25/25 19:01 Discharge Date/Time: 01/25/25 19:02 Print Language: Taiwanese
--- NOTE | 2025-01-25 16:41 | PC.NURSE ---
Given sour apple mitchell lau hard candy to suck on by CY Elder. In waiting room at this time.
[2025-01-25 16:57] LABS: MANUAL DIFF FLAG NO
[2025-01-25 16:59] LABS: Hematocrit 43.9 % (42.0-52.0); Hemoglobin 15.3 g/dl (14.0-18.0); Imm Gran Abs Auto 0.04 X10*3/uL (0.00-0.03); Imm Gran Pct Auto 0.4 % (0.0-0.4); Lymphocytes Absolute Auto 2.0 X10*3/uL (1.2-4.9); Mean Corpuscular HGB Conc 34.9 g/dl (31.0-36.0); Mean Corpuscular Hemoglobin 31.7 pg (27.0-33.0); Mean Corpuscular Volume 90.9 fL (80.0-98.0); NRBC Abs Auto 0.000 X10*3/uL (0.0-0.012); NRBC Pct Auto 0.0 /100WBC (0.0-0.2); Platelet Count 220 X10*3/uL (160-400); Red Blood Count 4.83 X10*6/uL (4.60-5.80); White Blood Count 11.4 X10*3/uL (4.8-10.8)
[2025-01-25 17:13] LABS: Alanine Aminotransferase 52 U/L (0-40); Albumin Level 4.2 g/dL (3.5-5.0); Alkaline Phosphatase 83 U/L (39-117); Anion Gap 12 (12-20); Aspartate Amino Transferase 31 U/L (5-37); Blood Urea Nitrogen 19 mg/dL (9-16); Calcium 9.6 mg/dL (8.4-10.2); Carbon Dioxide 27 mmol/L (22-29); Chloride 105 mmol/L (96-108); Creatinine Clr Calc Pharmacy 107.5; Estimated Glomerular Filt Rate > 60; Potassium 4.2 mmol/L (3.3-5.1); Sodium 140 mmol/L (135-145); Total Protein 7.3 g/dL (6.5-8.0)
[2025-01-25 18:44] VITALS: BP 116/76; PULSE 88; RESP 19; TEMP 36.7; O2SAT 98
[2025-01-25 19:01] VITALS: BP 116/76; PULSE 88; RESP 19; TEMP 36.7; O2SAT 98
== END 2025-01-25 19:02 | disposition home or self-care (01) ==
PROVIDERS: Registered Nurse Emergency; Emergency Provider Emergency Medicine; PCP Internal Medicine
DX: R22.1 Localized swelling, mass and lump, neck (principal)
CPT/HCPCS: 36415; 80053; 85025; 99282; 99283

== ENCOUNTER 2025-02-19 14:49 | Outpatient (AMB) | payer OTHER, SELFPAY ==
--- NOTE | 2025-02-19 14:53 | MHC.OFFVIS ---
Vital Signs 02/19/25 14:54 Height 5 ft 11 in Weight 203 lb 14.841 oz BMI 28.4 BP 100/54 L Blood Pressure Location Lt brachial Position Sitting Pulse 109 H Pulse Source Pulse Oximeter Pulse Oximetry (%) 95 Oxygen Delivery Method Room Air Intake Visit Reasons: Abnormal CT scan Care Aide Required: No Accompanied by: Self / Same As Patient Allergies No Known Allergies Allergy (Verified 02/19/25 14:56) HPI Comments Details: The patient is here for pulmonary evaluation. The patient is a 59-year-old gentleman who was in his usual state health until back in January he started developing severe chest discomfort. It was sudden. He also felt some fevers and chills. He stayed home the 1st day but then afterwards the next day he did go to the hospital because of the symptoms that he had. Part of the workup included a CT scan of the chest. I did personally review the CAT scan. Appears that he has significant mosaic pattern bronchitis and also these nodular densities with some cavitary lesions. The pattern suggestive of an infectious process. Hematogenous spread is in differential. He denies any IV drug use or dental procedure or any kind of infection that he is aware of. His white count was indeed elevated upon arrival. He does have a history of diverticulitis in he did have some pain in the abdominal area during that time but right now feels well. In addition to that the patient did have a right adrenal gland nodular density. The Hounsfield units were not described on the CAT scan. I will have to discuss it with the radiologist to see what the likelihood of an adenoma versus a concerning finding. Otherwise will need additional testing for this finding. The patient is scheduled to start Augmentin to treat him for infectious process and will plan to repeat the CAT scan in 8 weeks. If the areas still abnormal then additional testing and diagnostic intervention will be warranted. For now he is going to go for blood work and I will let him know after I review the CAT scan with Radiology regarding the adrenal lesion. Clinically the patient is doing well denies any weight loss or night sweats. He feel like he is back to baseline from his initial it so back in January. 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 Review of Systems Const Denies fever(s) Eyes Reports no additional complaints ENT Reports no additional complaints Card Denies chest pain, Denies dyspnea and Denies dyspnea on exertion Resp Denies chest congestion, Denies cough, Denies dyspnea, Denies dyspnea on exertion and Denies wheezing GI Reports dyspepsia and Reports heartburn Musc Reports no additional complaints Skin/Breast Denies rash Neuro Reports no additional complaints Psych Reports no additional complaints Yazan/Lymph Reports no additional complaints Aller/Immun Denies wheezing Physical Exam Vital Signs: Last Vital Signs Pulse 109 H 02/19/25 14:54 BP 100/54 L 02/19/25 14:54 Pulse Ox 95 02/19/25 14:54 Oxygen Delivery Method Room Air 02/19/25 14:54 BMI result Body Mass Index 28.4 Const General: comfortable Orientation/consciousness: patient oriented x3 HEENT Head: Yes normocephalic Neck Neck: Yes supple Chest Chest palpation & inspection: normal inspection of the chest Resp Effort & Inspection: normal respiratory effort Auscultation: diminished lung sounds Cardio Heart sounds: S1 normal heart sound present and S2 normal heart sound present GI Palpation (GI): Soft to palpation Skin General skin exam: no rashes or lesions noted Neuro General: patient oriented x3 Extrem General: Yes no clubbing, cyanosis or edema Results Reviewed Results Reviewed: Personally reviewed CT chest with pulmonary nodules, peripheral cavitary lesions, cyst and right sided adrenal nodule Assessment & Plan Assessment & Plan (1) Cavitary lung disease: Code(s): J98.4 - Other disorders of lung Category: Medical (2) Lesion of adrenal gland: Code(s): E27.9 - Disorder of adrenal gland, unspecified Category: Medical (3) Bronchitis: Code(s): J40 - Bronchitis, not specified as acute or chronic Category: Medical (4) Pulmonary nodules: Code(s): R91.8 - Other nonspecific abnormal finding of lung field Category: Medical Plan Bloodwork start Augmentin repeat CT chest in 8 weeks Need to review adrenal nodule with radiology F/U 8-10 weeks Orders: Orders Complete Blood Count Auto Diff Today J98.4 - Other disorders of lung ANCA Vasculitides Today J98.4 - Other disorders of lung Immunoglobulins,IgG IgA IgM Today J98.4 - Other disorders of lung CT chest wo IV con 8 Weeks E27.9 - Disorder of adrenal gland, unspecified, J98.4 - Other disorders of lung SHUKRI Reflex Titer and Pattern Today J98.4 - Other disorders of lung Erythrocyte Sedimentation Rate Today J98.4 - Other disorders of lung Hypersensitive Pneumonitis Prf Today J98.4 - Other disorders of lung, R91.8 - Other nonspecific abnormal finding of lung field Sjogren's Antibodies Today J98.4 - Other disorders of lung HIV Ab/Ag Today J98.4 - Other disorders of lung Blood Culture X1 Today J98.4 - Other disorders of lung Medications: New amoxicillin-pot clavulanate 875-125 mg 1 tab PO BID 20 tabs 0RF 10 days Coding Level of Care Code New Pt Level 5 (90693) Diagnoses Cavitary lung disease J98.4 Lesion of adrenal gland E27.9 Bronchitis J40 Pulmonary nodules R91.8 Time Spent (min) 60
[2025-02-19 14:54] VITALS: BP 100/54; PULSE 109; O2SAT 95; BMI 28.4
== END 2025-02-19 15:27 | disposition home or self-care (01) ==
LOC: HO.HPS 14:49
PROVIDERS: PCP Internal Medicine; Referring Provider Internal Medicine; Visit Provider Hospitalist
DX: J98.4 Other disorders of lung (principal); E27.9 Disorder of adrenal gland, unspecified; J40 Bronchitis, not specified as acute or chronic; R91.8 Other nonspecific abnormal finding of lung field
CPT/HCPCS: 99205

== ENCOUNTER 2025-02-19 14:49 | Outpatient (REF) | payer OTHER, SELFPAY ==
[2025-02-19 15:51] LABS: MANUAL DIFF FLAG NO
[2025-02-19 16:29] LABS: Hematocrit 44.2 % (42.0-52.0); Hemoglobin 15.1 g/dl (14.0-18.0); Imm Gran Abs Auto 0.03 X10*3/uL (0.00-0.03); Imm Gran Pct Auto 0.3 % (0.0-0.4); Lymphocytes Absolute Auto 2.5 X10*3/uL (1.2-4.9); Mean Corpuscular HGB Conc 34.2 g/dl (31.0-36.0); Mean Corpuscular Hemoglobin 31.4 pg (27.0-33.0); Mean Corpuscular Volume 91.9 fL (80.0-98.0); NRBC Abs Auto 0.000 X10*3/uL (0.0-0.012); NRBC Pct Auto 0.0 /100WBC (0.0-0.2); Platelet Count 239 X10*3/uL (160-400); Red Blood Count 4.81 X10*6/uL (4.60-5.80); White Blood Count 10.0 X10*3/uL (4.8-10.8)
[2025-02-19 18:18] LABS: Erythrocyte Sedimentation Rate 28 MM/HR (0-15)
[2025-02-20 04:41] LABS: HIV Num 1 0.06 S/CO (0.00-0.99)
[2025-02-20 11:54] LABS: Anti Nuclear Antibody Screen NEGATIVE (NEGATIVE)
[2025-02-20 14:23] LABS: Antibody to SS-A Antigen <1.0 NEG AI (<1.0 NEG); Antibody to SS-B Antigen <1.0 NEG AI (<1.0 NEG); Proteinase 3 PR3 Antibodies <1.0 AI
== END 2025-02-19 14:50 | disposition home or self-care (01) ==
LOC: HO.LAB 14:49
PROVIDERS: PCP Internal Medicine; Referring Provider Internal Medicine; Visit Provider Hospitalist
DX: J98.4 Other disorders of lung (principal); E27.9 Disorder of adrenal gland, unspecified; J40 Bronchitis, not specified as acute or chronic; R91.8 Other nonspecific abnormal finding of lung field; Z01.84 Encounter for antibody response examination
CPT/HCPCS: 36415; 82784; 85025; 85652; 86021; 86038; 86235; 86331; 86606; 86609; 87389